=== PATIENT | female | born 1960 | race Two or more races ===

== ENCOUNTER 2022-04-01 07:37 | Outpatient (CLI) | payer OTHER | END 2022-04-01 07:44 | disposition home or self-care (01) | LOC: NUCLEAR 07:37 | DX: Z86.73 Personal history of transient ischemic attack (TIA), and cerebral infarction without residual deficits (principal) ==

== ENCOUNTER 2022-04-01 08:35 | Outpatient (CLI) | payer OTHER | END 2022-04-01 08:41 | disposition home or self-care (01) | LOC: LAB 08:35 | PROVIDERS: ATTEND Internal Medicine Cardiovascular Disease | DX: E11.9 Type 2 diabetes mellitus without complications (principal); A64 Unspecified sexually transmitted disease; B20 Human immunodeficiency virus [HIV] disease; E28.9 Ovarian dysfunction, unspecified ==

== ENCOUNTER 2022-04-01 09:17 | Outpatient (CLI) | payer OTHER | END 2022-04-01 09:18 | disposition home or self-care (01) | LOC: RAD 09:17 | PROVIDERS: ATTEND Internal Medicine Cardiovascular Disease | DX: Z86.73 Personal history of transient ischemic attack (TIA), and cerebral infarction without residual deficits (principal) ==

== ENCOUNTER 2022-08-07 07:10 | Outpatient (CLI) | payer OTHER | END 2022-08-07 07:14 | disposition home or self-care (01) | LOC: LAB 07:10 | PROVIDERS: ATTEND Specialist | DX: E03.8 Other specified hypothyroidism (principal); E78.00 Pure hypercholesterolemia, unspecified; Z86.73 Personal history of transient ischemic attack (TIA), and cerebral infarction without residual deficits ==

== ENCOUNTER 2022-09-12 06:48 | Outpatient (CLI) | payer OTHER | END 2022-09-12 06:49 | disposition home or self-care (01) | LOC: LAB 06:48 | PROVIDERS: ATTEND Internal Medicine | DX: U07.1 COVID-19 (principal); B34.1 Enterovirus infection, unspecified ==

== ENCOUNTER 2022-09-13 07:24 | Outpatient (CLI) | payer OTHER | END 2022-09-13 15:19 | disposition home or self-care (01) | LOC: NUCLEAR 07:24 | PROVIDERS: ATTEND Internal Medicine Cardiovascular Disease | DX: I49.9 Cardiac arrhythmia, unspecified (principal) ==

== ENCOUNTER 2022-11-12 06:48 | Outpatient (CLI) | payer OTHER ==
[~2022-11-12 06:48] MED LIST: LEVOTHYROXINE88 MCG PO
== END 2022-11-12 06:49 | disposition home or self-care (01) ==
LOC: LAB 06:48
PROVIDERS: ATTEND Internal Medicine Cardiovascular Disease
DX: E03.8 Other specified hypothyroidism (principal); E78.1 Pure hyperglyceridemia; E11.9 Type 2 diabetes mellitus without complications; I10 Essential (primary) hypertension

== ENCOUNTER 2023-07-07 13:49 | Outpatient (CLI) | payer OTHER | END 2023-07-07 14:10 | disposition home or self-care (01) | LOC: MAMO-SONO 13:49 | PROVIDERS: ATTEND Specialist | DX: Z12.31 Encounter for screening mammogram for malignant neoplasm of breast (principal); N64.4 Mastodynia ==

== ENCOUNTER 2023-07-21 08:40 | Outpatient (CLI) | payer OTHER | END 2023-07-21 09:10 | disposition home or self-care (01) | LOC: MRI 08:40 | DX: G37.9 Demyelinating disease of central nervous system, unspecified (principal); E06.3 Autoimmune thyroiditis; Z86.73 Personal history of transient ischemic attack (TIA), and cerebral infarction without residual deficits | CPT/HCPCS: 70553 ==

== ENCOUNTER 2023-07-21 10:34 | Outpatient (CLI) | payer OTHER | END 2023-07-21 10:37 | disposition home or self-care (01) | LOC: LAB 10:34 | PROVIDERS: ATTEND Radiology Diagnostic Radiology | DX: E06.3 Autoimmune thyroiditis (principal) ==

== ENCOUNTER 2024-10-13 12:49 | Outpatient (CLI) | payer OTHER | END 2024-10-13 14:24 | disposition home or self-care (01) | LOC: MAMO-SONO 12:49 | DX: N64.4 Mastodynia (principal) ==

== ENCOUNTER 2025-02-08 10:30 | Outpatient (CLI) | payer OTHER | END 2025-02-08 10:32 | disposition home or self-care (01) | LOC: MRI 10:30 | DX: Z86.73 Personal history of transient ischemic attack (TIA), and cerebral infarction without residual deficits (principal) | CPT/HCPCS: 70551 ==

== ENCOUNTER 2025-07-06 07:10 | Outpatient (CLI) | payer OTHER ==
[2025-07-06 08:53] LABS: BASO % 0.9 % (0.1-1.2); EOS # 0.21 (0.04-0.54); EOS % 3.6 % (0.7-7.0); LYMPH # 2.29 (1.18-3.74); LYMPH % 39.3 % (19.3-53.1); MEAN PLATELET VOLUME 9.80 fl (9.4-12.4); MONO # 0.62 (0.24-0.82); MONO % 10.6 % (4.7-12.5); NEUT # 2.65 (1.56-6.13); NEUT % 45.4 % (34.0-71.1); RED CELL DISTRIBUTION WIDTH 13.2 % (11.6-14.4)
[2025-07-06 09:42] LABS: ALT/SGPT 32 U/L (12-78); AST/SGOT 21 U/L (15-37); BILIRUBIN TOTAL 0.43 mg/dL (0.3-1.2); BUN CREA RATIO 19 (7.0-25.0); CHOL HDL RATIO 2.8 (0-5.0); CREATININE SERUM 0.78 mg/dL (0.55-1.02); GFR 74.59; GLOBULINA 3.3 G/DL (2.4-3.5); GLUCOSE FASTING 96 mg/dL (65-100); HDL 71 mg/dl (40-60); LDL 106 mg/dl (0-130); OSMOLALITY SERUM 282 MOSM/KG (275-295); TSH 2.380 uIU/mL (0.358-3.74); VLDL 21 (0-39)
== END 2025-07-06 07:18 | disposition home or self-care (01) ==
LOC: LAB 07:10
PROVIDERS: ATTEND Internal Medicine Cardiovascular Disease
DX: E03.8 Other specified hypothyroidism (principal); E78.1 Pure hyperglyceridemia; I10 Essential (primary) hypertension; R76.0 Raised antibody titer; M06.9 Rheumatoid arthritis, unspecified

== ENCOUNTER 2025-07-06 08:33 | Outpatient (CLI) | payer OTHER | END 2025-07-06 08:34 | disposition home or self-care (01) | LOC: RAD 08:33 | PROVIDERS: ATTEND Internal Medicine Cardiovascular Disease | DX: M54.16 Radiculopathy, lumbar region (principal) ==